=== PATIENT | male | born 1985 | race African-American/Black ===

== ENCOUNTER 2017-10-26 12:29 | Emergency (ER) | payer SELFPAY ==
[~2017-10-26] VITALS: Ht 167.6 cm; Wt 80.0 kg
[2017-10-26 12:30] VITALS: BP 120/84; PULSE 89; RESP 16; TEMP 98.3; O2SAT 99
[2017-10-26] MEDS ORDERED: ZOFR4TAB PO (13:20)
[2017-10-26] MEDS ORDERED: BENZ100 PO (13:20)
--- NOTE | 2017-10-26 13:23 | PD ---
HPI Chief Complaint: Cold / Flu Symptoms Time Seen by Provider: 13:08 Travel History International Travel<30 days: No Contact w/Intl Traveler<30days: No Traveled to known affect area: No History of Present Illness HPI 32-year-old male presents to emergency department complaining of fever, chills, nausea, vomiting, diarrhea for 3-4 days. Also complaining of occasional cough with white sputum. Patient states that he has had multiple episodes of both for several days. Patient states that he has not use any [id number] medications for his symptoms. Patient states his girlfriend was sick with the same issue and her symptoms have improved significantly. Patient is concerned because he is not normally sick. Patient denies recent travel, surgeries, fractures. Denies chest pain, shortness of breath, abdominal pain, urinary symptoms. PFSH Social History Tobacco Use: No Allergies-Medications (Allergen,Severity, Reaction): Coded Allergies: No Known Allergies (Unverified , 10/26/17) Reported Meds & Prescriptions Reported Meds & Active Scripts Active Tessalon Perles (Benzonatate) 100 Mg Cap 100 Mg PO TID PRN 5 Days Zofran (Ondansetron HCl) 4 Mg Tab 4 Mg PO Q8HR PRN 5 Days Review of Systems Except as stated in HPI: all other systems reviewed are Neg Physical Exam Narrative GENERAL: Well-developed well-nourished in no apparent distress SKIN: Focused skin assessment warm/dry. HEAD: Atraumatic. Normocephalic. EYES: Pupils equal and round. No scleral icterus. No injection or drainage. ENT: No nasal bleeding or discharge. Mucous membranes pink and moist. No tonsillar exudate, para to the or erythema. NECK: Trachea midline. No JVD. No lymphadenopathy CARDIOVASCULAR: Regular rate and rhythm. No murmur appreciated. RESPIRATORY: No accessory muscle use. Clear to auscultation. Breath sounds equal bilaterally. GASTROINTESTINAL: Abdomen soft, non-tender, nondistended. Hepatic and splenic margins not palpable. MUSCULOSKELETAL: No obvious deformities. No clubbing. No cyanosis. No edema. NEUROLOGICAL: Awake and alert. No obvious cranial nerve deficits. Motor grossly within normal limits. Normal speech. PSYCHIATRIC: Appropriate mood and affect; insight and judgment normal. Data Data Last Documented VS Vital Signs Date Time Temp Pulse Resp B/P (MAP) Pulse Ox O2 Delivery O2 Flow Rate FiO2 10/26/17 13:43 10/26/17 12:30 98.3 89 16 99 Orders Orders Ed Discharge Order (10/26/17 13:24) MDM Medical Decision Making Medical Screen Exam Complete: Yes Emergency Medical Condition: Yes Differential Diagnosis Influenza, viral syndrome, upper respiratory infection Narrative Course 32-year-old male presents to emergency department complaining of fever, chills, nausea, vomiting, diarrhea for 3-4 days. Also complaining of occasional cough with white sputum. Patient states that he has had multiple episodes of both for several days. Patient states that he has not use any [id number] medications for his symptoms. Patient states his girlfriend was sick with the same issue and her symptoms have improved significantly. Patient is concerned because he is not normally sick. Patient denies recent travel, surgeries, fractures. Denies chest pain, shortness of breath, abdominal pain, urinary symptoms. Vital signs stable. Physical exam unremarkable. Reassured patient and girlfriend. I offered chest x-ray and influenza test although did not think this is necessary. Patient would like to avoid testing and a longer hospital stay today. Zofran and Tessalon Perles for nausea and cough. Advised patient he may take [id number] Imodium for his diarrhea per package instructions. Strongly advised patient to follow up with primary care physician within 2-3 days. Return to the ED for worsening or persistent symptoms Diagnosis Primary Impression: Viral syndrome Referrals: [facility] Additional Instructions: Follow-up primary care physician. Take medication as needed for cough and nausea. Take Tylenol or Motrin per package instructions for your body aches and fevers. Ensure a healthy fluid intake with nutritious diet. If your symptoms persist or worsen return to the emergency department. Scripts Benzonatate (Tessalon Perles) 100 Mg Cap 100 MG PO TID Y for COUGH for 5 Days, CAP 0 Refills Prov: Nathaniel Morocho MD 10/26/17 Ondansetron (Zofran) 4 Mg Tab 4 MG PO Q8HR Y for NAUSEA OR VOMITING for 5 Days, TAB 0 Refills Prov: Nathaniel Morocho MD 10/26/17 Disposition: 01 DISCHARGE HOME Condition: Stable Ester Ann Oct 26, 2017 13:23
== END 2017-10-26 13:44 | disposition home or self-care (01) ==
LOC: NEPD 12:29
DX: B34.9 Viral infection, unspecified (principal)
CPT/HCPCS: 99283